=== PATIENT | female | born 1970 | race Caucasian/White ===

== ENCOUNTER → 2016-08-01 | Outpatient (CLI) | payer MEDICARE, MEDICAID ==
[~2016-08-01] MED LIST: ACETAMINOPHEN325 MG PO; ALBUTEROL2.5 MG/3 M INH; ALDACTONE25 MG PO; ALUM-MAG HYDRO360 ML PO; AMBIEN5 MG PO; BYSTOLIC10 MG PO; CATAPRES0.2 MG PO; CELEXA20 MG PO; CHLORTHALIDONE25 MG PO; CLARITIN10 MG PO; CYMBALTA30 MG PO; DIOVAN320 MG PO; DULCOLAX10 MG RECTAL; FENTANYL 050 MCG/1 M IV; FENTANYL IV; FLEXERIL10 MG PO; HYDROCODON-ACE1 EAC2 PO; HYZAAR 50-12.51 EACH PO; LAXATIVE5 M1 PO; LINZESS145 MCG PO; LIPITOR80 MG PO; LONITEN10 MG PO; LYRICA100 MG PO; MILK OF MAGNESI30 ML PO; MIRALAX17 GM PO; MOBIC15 MG PO; MOTRIN800 MG PO; NITROSTAT0.4 MG SL; NORCO 325-5 MG1 TAB PO; NORCO 5-325 TA1 EACH PO; NORVASC10 MG PO; ONDANSETRON4 MG/2 M3 IV; PERCOCET 325-51 TAB PO; PHENADOZ25 MG RECTAL; PRINIVIL2.5 MG PO; PROAIR RESPICL90 MCG INH; PROVENTIL HFA6.7 GM INH; QVAR8.7 GM INH; SILVADENE 1%85 GM TOP; SYNTHROID100 MCG PO; TOPIRAMATE25 MG PO; TYLENOL650 MG RECTAL; XANAX0.5 MG PO; ZETIA10 MG PO; ZOFRAN ODT4 MG PO; ZOLPIDEM TARTRAT5 MG PO
== END | disposition short-term general hospital (02) ==
LOC: CLPHYS 08:28
DX: R20.9 Unspecified disturbances of skin sensation (principal); M79.605 Pain in left leg; M79.604 Pain in right leg

== ENCOUNTER → 2016-08-14 | Outpatient (CLI) | payer MEDICARE, MEDICAID | END | disposition short-term general hospital (02) | LOC: CLNEUR 09:43 → RAD 14:58 → CLNEUR 16:24 → EDSTATUS 16:24 | DX: Z48.89 Encounter for other specified surgical aftercare (principal) ==

== ENCOUNTER → 2016-08-18 | Outpatient (CLI) | payer MEDICARE, MEDICAID | END | disposition short-term general hospital (02) | LOC: CLCARD 10:33 | DX: I10 Essential (primary) hypertension (principal); J44.9 Chronic obstructive pulmonary disease, unspecified; E78.5 Hyperlipidemia, unspecified; E66.9 Obesity, unspecified; F41.9 Anxiety disorder, unspecified; J45.909 Unspecified asthma, uncomplicated; R51 Headache; M79.672 Pain in left foot; G89.29 Other chronic pain; E03.9 Hypothyroidism, unspecified; M25.473 Effusion, unspecified ankle; K59.00 Constipation, unspecified; M51.37 Other intervertebral disc degeneration, lumbosacral region; I25.10 Atherosclerotic heart disease of native coronary artery without angina pectoris ==